=== PATIENT | male | born 1960 | race Caucasian/White ===

== ENCOUNTER → 2018-01-11 11:42 | Outpatient (CLI) | payer OTHER, SELFPAY ==
[2018-01-11 14:37] LABS: Anion Gap 5 (5-15); BUN 13 mg/dL (7-18); BUN/Creat Ratio 12.1 RATIO (10-20); Chloride 105 mmol/L (98-107); Cholesterol 192 mg/dL (200); Creatinine, Serum 1.07 mg/dL (0.70-1.30); EST Glomerular Filtration Rate 76 mL/min (>60); Est Glom Filt Rate - Afr Amer 92 mL/min (>60); Glucose 96 mg/dL (74-106); High Density Lipoprotein 36 mg/dL; Potassium 4.7 mmol/L (3.5-5.1); Sodium Level 139 mmol/L (136-145); Triglycerides 166 mg/dL; Very Low Density Lipoprotein 33 mg/dL (5-40)
[2018-01-11 14:42] LABS: Vitamin D,25 Hydroxy 28.5 ng/mL (29.95-100.01)
== END ==
PROVIDERS: Family Provider Family Medicine; PCP Family Medicine; Visit Provider Family Medicine
DX: Z00.00 Encounter for general adult medical examination without abnormal findings (principal); E04.1 Nontoxic single thyroid nodule
CPT/HCPCS: 36415; 80048; 80061; 82306; 84443

== ENCOUNTER → 2018-01-16 08:00 | Outpatient (CLI) | payer OTHER, SELFPAY ==
--- NOTE | 2018-01-16 08:06 | US_ITS ---
STUDY: THYROID ULTRASOUND REASON FOR EXAM: Male, 57 years old. Nodule, history of biopsy of the left thyroid 2016. TECHNIQUE: Ultrasound evaluation of the thyroid was performed with real-time and static padilla-scale imaging. COMPARISON: Ultrasound thyroid 01/10/2017.. FINDINGS: RIGHT LOBE: 5.6 x 2.1 x 2.3 cm. Homogeneous echotexture with normal vascularity. There is a 3 mm cystlike thyroid nodule upper pole. LEFT LOBE: 5.5 x 2.3 x 2.2 cm. Homogeneous echotexture with normal vascular flow. There is a 17 x 13 x 9 mm mid polar cystic and solid sharply circumscribed oval nodule with intranodular vascular flow, and tiny echo reflectors that may reflect the presence of colloid. On prior imaging this nodule measured 1.24 x 1.09 x 1.29 cm. There are no other left-sided nodules. ISTHMUS: The isthmus measures 4 mm, normal echotexture. . US/Thyroid IMPRESSION: 1. Stable right thyroid, containing a tiny benign cyst. 2. No significant interval change in the size, morphology of a dominant left thyroid nodule. Reportedly, the patient has a left thyroid nodule biopsied in 2016. Correlate biopsy results. 3. Follow-up surveillance imaging in approximately one year is recommended if the biopsy results were negative. Electronically Signed: Nathan Cintron, at 16:42 EDT Tel , Service support ,
== END ==
PROVIDERS: Family Provider Family Medicine; PCP Family Medicine; Visit Provider Family Medicine
DX: E04.1 Nontoxic single thyroid nodule (principal)
CPT/HCPCS: 76536

== ENCOUNTER → 2019-02-01 10:09 | Outpatient (CLI) | payer OTHER, SELFPAY ==
[2019-02-01 13:22] LABS: Vitamin D,25 Hydroxy 32.2 ng/mL (29.95-100.01)
[2019-02-01 13:49] LABS: Anion Gap 5 (5-15); BUN 18 mg/dL (7-18); BUN/Creat Ratio 15.7 RATIO (10-20); Calcium,Total 9.1 mg/dL (8.5-10.1); Chloride 106 mmol/L (98-107); Cholesterol 180 mg/dL (200); Creatinine, Serum 1.15 mg/dL (0.70-1.30); EST Glomerular Filtration Rate 70 mL/min (>60); Est Glom Filt Rate - Afr Amer 85 mL/min (>60); Glucose 93 mg/dL (74-106); High Density Lipoprotein 35 mg/dL; PSA,Total - Annual Screen 0.55 ng/mL (0.00-4.00); Potassium 4.6 mmol/L (3.5-5.1); Sodium Level 140 mmol/L (136-145); Thyroid Stim Hormone (TSH) 0.98 uIU/mL (0.358-3.74); Triglycerides 145 mg/dL; Very Low Density Lipoprotein 29 mg/dL (5-40)
== END ==
PROVIDERS: Family Provider Family Medicine; PCP Family Medicine; Referring Provider Family Medicine; Visit Provider Family Medicine
DX: Z00.00 Encounter for general adult medical examination without abnormal findings (principal); E04.1 Nontoxic single thyroid nodule
CPT/HCPCS: 36415; 80048; 80061; 82306; 84153; 84443; G0103

== ENCOUNTER → 2019-02-28 13:48 | Outpatient (CLI) | payer OTHER, SELFPAY ==
--- NOTE | 2019-02-28 13:52 | US_ITS ---
STUDY: THYROID ULTRASOUND REASON FOR EXAM: Male, 58 years old. Nodule. TECHNIQUE: Ultrasound evaluation of the thyroid was performed with real-time and static padilla-scale imaging. COMPARISON: 01/16/2018. FINDINGS: RIGHT LOBE: The right lobe of the thyroid gland measures 5.7 x 2.2 x 2.0 cm. There is a homogeneous echotexture. Within the right thyroid lobe there are multiple cystic structure largest measuring 0.3 x 0.4 x 0.3 cm and seen within the upper pole. The margins are regular with no distinct solid component. LEFT LOBE: The left lobe of the thyroid gland measures 5.6 x 2.1 x 2.4 cm. There is a homogeneous echotexture. Within the left thyroid lobe there is a solid, hypoechoic nodularity with degenerated cystic changes and hypoechoic rim measuring 1.8 x 1.5 x 1.0 cm. Possible tiny microcalcification within the nodule. This reveals nodular margins with internal and peripheral color flow. ISTHMUS: The isthmus measures 3.0 mm. The regional lymph nodes are normal. US/Thyroid IMPRESSION: Bilateral thyroid lobe nodules as described above and compatible with benign process essentially stable in the interval. No evidence of new solid lesions or lymphadenopathy. If clinical indicated, follow-up ultrasound in 6-12 months recommended to evaluate stability. Electronically Signed: Mireya Ovalles MD at 3:13 EST , Service support ,
== END ==
PROVIDERS: Family Provider Family Medicine; PCP Family Medicine; Referring Provider Family Medicine; Visit Provider Family Medicine
DX: E04.1 Nontoxic single thyroid nodule (principal)
CPT/HCPCS: 76536

== ENCOUNTER → 2020-02-04 09:52 | Outpatient (CLI) | payer OTHER, SELFPAY ==
[2020-02-04 12:55] LABS: Anion Gap 6 (5-15); BUN 21 mg/dL (7-18); BUN/Creat Ratio 19.6 RATIO (10-20); Chloride 107 mmol/L (98-107); Cholesterol 176 mg/dL (200); Creatinine, Serum 1.07 mg/dL (0.70-1.30); EST Glomerular Filtration Rate 76 mL/min (>60); Est Glom Filt Rate - Afr Amer 92 mL/min (>60); Glucose 100 mg/dL (74-106); High Density Lipoprotein 39 mg/dL; Potassium 4.6 mmol/L (3.5-5.1); Sodium Level 139 mmol/L (136-145); Triglycerides 140 mg/dL; Very Low Density Lipoprotein 28 mg/dL (5-40)
== END ==
PROVIDERS: PCP Family Medicine; Visit Provider Family Medicine
DX: Z00.00 Encounter for general adult medical examination without abnormal findings (principal)
CPT/HCPCS: 36415; 80048; 80061

== ENCOUNTER → 2020-03-07 12:45 | Outpatient (CLI) | payer OTHER, SELFPAY ==
--- NOTE | 2020-03-07 12:53 | US_ITS ---
STUDY: THYROID ULTRASOUND REASON FOR EXAM: Male, 59 years old. nodules TECHNIQUE: Ultrasound evaluation of the thyroid was performed with real-time and static padilla-scale imaging. COMPARISON: Thyroid ultrasound dated 02/28/2019 FINDINGS: RIGHT LOBE: The right lobe of the thyroid gland measures 5.8 x 2.1 x 2.6 cm. There is a homogeneous echotexture. Tiny midpole colloid cyst measuring 3 x 3 x 3 mm. LEFT LOBE: The left lobe of the thyroid gland measures 5.1 x 2.4 x 2.5 cm. There is a homogeneous echotexture. Mid to lower pole solid nodule measuring 1.9 x 1.4 x 1.0 cm. ISTHMUS: The isthmus measures 0.4 cm. The regional lymph nodes are normal. US/Thyroid IMPRESSION: Solid left lower pole nodule as above. Small right thyroid cyst. No significant change from prior Electronically Signed: Maycol Knapp DO at 13:53 EST Tel , Service support ,
== END ==
PROVIDERS: PCP Family Medicine; Referring Provider Family Medicine; Visit Provider Family Medicine
DX: E04.1 Nontoxic single thyroid nodule (principal)
CPT/HCPCS: 76536

== ENCOUNTER → 2021-02-05 09:14 | Outpatient (CLI) | payer OTHER, SELFPAY ==
[2021-02-05 10:35] LABS: Anion Gap 5 (5-15); BUN 17 mg/dL (7-18); BUN/Creat Ratio 16.2 RATIO (10-20); Calcium,Total 9.4 mg/dL (8.5-10.1); Chloride 106 mmol/L (98-107); Cholesterol 183 mg/dL (200); Creatinine, Serum 1.05 mg/dL (0.70-1.30); EST Glomerular Filtration Rate 77 mL/min (>60); Est Glom Filt Rate - Afr Amer 93 mL/min (>60); Glucose 99 mg/dL (74-106); High Density Lipoprotein 38 mg/dL; PSA,Total - Annual Screen 0.78 ng/mL (0.00-4.00); Potassium 4.7 mmol/L (3.5-5.1); Sodium Level 139 mmol/L (136-145); Thyroid Stim Hormone (TSH) 1.18 uIU/mL (0.358-3.74); Triglycerides 112 mg/dL; Very Low Density Lipoprotein 22 mg/dL (5-40)
== END ==
PROVIDERS: PCP Family Medicine; Referring Provider Family Medicine; Visit Provider Family Medicine
DX: Z00.00 Encounter for general adult medical examination without abnormal findings (principal)
CPT/HCPCS: 36415; 80048; 80061; 84153; 84403; 84443; G0103

== ENCOUNTER → 2022-02-08 | Outpatient (CLI) | payer BC, SELFPAY ==
[2022-02-08 10:21] LABS: Anion Gap 9 (5-15); BUN 17 mg/dL (7-18); BUN/Creat Ratio 18.3 RATIO (10-20); Calcium,Total 8.9 mg/dL (8.5-10.1); Chloride 106 mmol/L (98-107); Cholesterol 162 mg/dL (200); Creatinine, Serum 0.93 mg/dL (0.70-1.30); EST Glomerular Filtration Rate 88 mL/min (>60); Est Glom Filt Rate - Afr Amer 107 mL/min (>60); Glucose 106 mg/dL (74-106); High Density Lipoprotein 38 mg/dL; PSA,Total - Annual Screen 1.77 ng/mL (0.00-4.00); Potassium 4.3 mmol/L (3.5-5.1); Sodium Level 140 mmol/L (136-145); Triglycerides 95 mg/dL; Very Low Density Lipoprotein 19 mg/dL (5-40)
== END | disposition home or self-care (01) ==
LOC: MFPLAB 09:12
PROVIDERS: PCP Family Medicine; Visit Provider Family Medicine
DX: Z00.00 Encounter for general adult medical examination without abnormal findings (principal)
CPT/HCPCS: 36415; 80048; 80061; 82306; 84153; G0103

== ENCOUNTER → 2022-04-07 | Outpatient (CLI) | payer BC, SELFPAY ==
[2022-04-07 15:16] LABS: Erythrocyte Sedimentation Rate 4 mm/hr (0-20)
[2022-04-07 15:17] LABS: Absolute Lymphocyte Count 1.39 X10^3/uL (0.83-4.51); Absolute Neutrophil Count 3.8 X10^3/uL (2.0-7.7); Basophil# 0.02 X10^3/uL; Basophil% 0.4 % (0-1); Eosinophil# 0.04 X10^3/uL; Eosinophils% 0.7 % (0-5); Hematocrit 44.6 % (40-54); Hemoglobin 15.7 g/dL (13.0-16.5); Lymphocyte # 1.39 X10^3/ul (0.83-4.51); Lymphocyte % 24.7 % (19-41); Mean Corp Hgb Conc 35.2 g/dL (32-36); Mean Corpuscular Volume 90.8 fL (80-94); Mean Platelet Vol. 12.5 fl (6.2-12.0); Monocyte# 0.37 X10^3/uL; Monocyte% 6.6 % (0-10); NRBC Flagged by Analyzer 0 % (0-5); Neutrophil # 3.79 X10^3/uL (2.7-7.7); Neutrophil % 67.2 % (47-70); Platelet Count 195 K/mm3 (150-450); RBC Distribution Width CV 13.3 % (11.6-14.6); RBC Distribution Width SD 45.2 fl (35.1-43.9); Red Blood Count 4.91 M/mm3 (4.6-6.2); White Blood Count 5.6 K/mm3 (4.4-11.0)
[2022-04-07 15:36] LABS: Anion Gap 5 (5-15); BUN 15 mg/dL (7-18); BUN/Creat Ratio 14.7 RATIO (10-20); Calcium,Total 9.3 mg/dL (8.5-10.1); Chloride 106 mmol/L (98-107); Creatinine, Serum 1.02 mg/dL (0.70-1.30); EST Glomerular Filtration Rate 79 mL/min (>60); Est Glom Filt Rate - Afr Amer 96 mL/min (>60); Glucose 95 mg/dL (74-106); Potassium 4.3 mmol/L (3.5-5.1); Sodium Level 141 mmol/L (136-145); T4 Free Direct 0.91 ng/dL (0.76-1.46); Thyroid Stim Hormone (TSH) 0.72 uIU/mL (0.358-3.74)
== END | disposition home or self-care (01) ==
LOC: MTLAB 13:02
PROVIDERS: PCP Family Medicine; Referring Provider Family Medicine; Visit Provider Family Medicine
DX: R22.1 Localized swelling, mass and lump, neck (principal)
CPT/HCPCS: 36415; 80048; 84439; 84443; 85025; 85652

== ENCOUNTER → 2022-04-15 | Outpatient (CLI) | payer BC, SELFPAY ==
--- NOTE | 2022-04-15 11:58 | US_ITS ---
STUDY: THYROID ULTRASOUND REASON FOR EXAM: Male, 61 years old. thryoglossal duct cyst TECHNIQUE: Ultrasound evaluation of the thyroid was performed with real-time and static padilla-scale imaging. COMPARISON: Ultrasound of the thyroid gland dated March 07, 2020 FINDINGS: RIGHT LOBE: The right lobe of the thyroid gland measures 5.5 x 2.6 x 2.0, previously measuring 5.8 x 2.1 x 2.6 cm There is a homogeneous echotexture. Redemonstration of a tiny 3.9 mm cyst in the anterior medial aspect of the right lobe of the thyroid gland. LEFT LOBE: The left lobe of the thyroid gland measures 5.5 x 2.4 x 2.2, previously measuring 5.1 x 2.4 x 2.5 cm. There is a homogeneous echotexture. Redemonstration of a septated mixed solid and cystic nodule in the anterior medial aspect of the left lobe of thyroid gland measuring 2.1 x 1.7 x 1.2 cm, previously measuring 1.9 x 1.4 x 1.0 cm. This nodule has features of benign adenoma, and has mildly increased in size since the prior study. ISTHMUS: The isthmus measures 4.4 mm. The regional lymph nodes are normal. US/Thyroid IMPRESSION: 1. Mild interval increase in the size of the nodule in the left lobe of the thyroid gland which appears to represent a benign adenoma Electronically Signed: Jose Rose MD at 8:29 EST ,
== END | disposition home or self-care (01) ==
PROVIDERS: PCP Family Medicine; Visit Provider Family Medicine
DX: Q89.2 Congenital malformations of other endocrine glands (principal)
CPT/HCPCS: 76536

== ENCOUNTER → 2022-04-28 | Outpatient (CLI) | payer BC, SELFPAY ==
--- NOTE | 2022-04-28 13:01 | CT_ITS ---
STUDY: CT SOFT TISSUE NECK WITHOUT CONTRAST REASON FOR EXAM: Male, 61 years old. 2-3 week history of anterior neck swelling. RADIATION DOSAGE (If Supplied By Facility): CTDIvol = ( 17.65 ) mGy, DLP = ( 617.50 ) mGycm TECHNIQUE: The patient was scanned in a multi-detector CT scanner. High resolution transaxial imaging was performed without the administration of intravenous contrast material. Sagittal and coronal images were reconstructed. Individualized dose optimization techniques were used for this CT. COMPARISON: None. FINDINGS: Normal bilateral parotid glands. Normal bilateral silver lap machine tender spaces. Normal bilateral parapharyngeal spaces. Normal bilateral carotid spaces. Normal bilateral sublingual and submandibular glands and spaces. Normal visualized nasopharynx. Normal retropharyngeal space. Normal perivertebral space. Normal visualized bilateral faucial tonsils. The visualized tongue, tongue base and oropharynx are normal. There are minimally enlarged lymph nodes of the neck, with preservation of normal kira architecture, consistent with a reactive lymph hyperplasia. Small benign-appearing submental nodes are seen as well. There is no demonstrated solid or cystic mass lesion. Normal epiglottis, bilateral vallecula and hypopharynx. The pre-epiglottic and paraglottic adipose spaces are normal. Normal visualized bilateral piriform sinuses, aryepiglottic folds, vocal cords, and arytenoid-cricoid articulations. Normal subglottic trachea. Enlargement of both lobes of the thyroid gland. Cystic nodule seen in the left lobe. The largest measures 1 cm x 0.8 cm. Normal visualized pulmonary apices. Mucosal thickening of the left maxillary sinus. Normal visualized cervical spine. CT/Soft Tissue Neck without Contr IMPRESSION: Mild enlargement of the thyroid gland. Cystic nodule is seen in the left lobe. Small benign-appearing cervical lymph nodes. Mild degree of mucosal thickening of the left axilla sinus. Electronically Signed: Collins Umaña MD at 14:25 EST ,
== END | disposition home or self-care (01) ==
LOC: CT 12:59
PROVIDERS: PCP Family Medicine; Referring Provider Family Medicine; Visit Provider Family Medicine
DX: R22.1 Localized swelling, mass and lump, neck (principal)
CPT/HCPCS: 70490

== ENCOUNTER → 2023-02-09 | Outpatient (CLI) | payer BC, SELFPAY ==
[2023-02-09 11:49] LABS: Anion Gap 4 (5-15); BUN 17 mg/dL (7-18); BUN/Creat Ratio 15.9 RATIO (10-20); Calcium,Total 8.7 mg/dL (8.5-10.1); Chloride 106 mmol/L (98-107); Cholesterol 177 mg/dL (200); Creatinine, Serum 1.07 mg/dL (0.70-1.30); EST Glomerular Filtration Rate 75 mL/min (>60); Est Glom Filt Rate - Afr Amer 91 mL/min (>60); Glucose 101 mg/dL (74-106); High Density Lipoprotein 39 mg/dL; PSA,Total - Annual Screen 1.12 ng/mL (0.00-4.00); Potassium 4.7 mmol/L (3.5-5.1); Sodium Level 137 mmol/L (136-145); Triglycerides 88 mg/dL; Very Low Density Lipoprotein 18 mg/dL (5-40)
== END | disposition home or self-care (01) ==
LOC: MFPLAB 09:25
PROVIDERS: PCP Family Medicine; Visit Provider Family Medicine
DX: Z00.00 Encounter for general adult medical examination without abnormal findings (principal)
CPT/HCPCS: 36415; 80048; 80061; 84153; G0103

== ENCOUNTER → 2024-02-15 | Outpatient (CLI) | payer BC, SELFPAY ==
[2024-02-15 12:46] LABS: Anion Gap 6 (5-15); BUN 24 mg/dL (7-18); Chloride 110 mmol/L (98-107); Cholesterol 173 mg/dL (200); EST Glomerular Filtration Rate 81 mL/min (>60); Est Glom Filt Rate - Afr Amer 98 mL/min (>60); Glucose 104 mg/dL (74-106); High Density Lipoprotein 52 mg/dL; PSA,Total- Diagnostic 1.35 ng/mL (0.0-4.0); Sodium Level 140 mmol/L (136-145); Triglycerides 66 mg/dL; Very Low Density Lipoprotein 13 mg/dL (5-40)
== END | disposition home or self-care (01) ==
LOC: MFPLAB 09:18
PROVIDERS: PCP Family Medicine; Referring Provider Family Medicine; Visit Provider Family Medicine
DX: Z00.00 Encounter for general adult medical examination without abnormal findings (principal)
CPT/HCPCS: 36415; 80048; 80061; 84153

== ENCOUNTER → 2025-02-18 | Outpatient (CLI) | payer BC, SELFPAY ==
[2025-02-18 13:14] LABS: Anion Gap 10 (5-15); BUN 16 mg/dL (4-19); BUN/Creat Ratio 15.8 RATIO (10-20); Calcium,Total 9.3 mg/dL (7.6-11.0); Carbon Dioxide 24.8 mmol/L (21.0-32.0); Chloride 105 mmol/L (98-108); Cholesterol 176 mg/dL (<=200); Glucose 98 mg/dL (70-99); Low Density Lipoprotein Calc. 110 mg/dL; PSA,Total - Annual Screen 1.10 ng/mL (0.02-4.00); Potassium 4.5 mmol/L (3.3-5.1); Triglycerides 127 mg/dL; Very Low Density Lipoprotein 25 mg/dL (5-40); cholesterol:hdl ratio screen 4.11
== END | disposition home or self-care (01) ==
LOC: MFPLAB 09:24
PROVIDERS: PCP Family Medicine; Visit Provider Family Medicine
DX: Z00.00 Encounter for general adult medical examination without abnormal findings (principal)
CPT/HCPCS: 36415; 80048; 80061; 84153; G0103